=== PATIENT | female | born 1935 | race Caucasian/White ===

== ENCOUNTER 2024-07-20 13:09 | Inpatient (IN) | payer MEDICARE, BC ==
[~2024-07-20] VITALS: Ht 175.3 cm; Wt 63.5 kg
[2024-07-20 13:32] VITALS: BP 155/81; TEMP 98.1
[2024-07-20 14:07] VITALS: BP 155/81; TEMP 98.1
[2024-07-20] MEDS ORDERED: HYDR12.55 PO (14:10)
[2024-07-20] MEDS ORDERED: LOSA50TA39 PO (14:10)
[2024-07-20] MEDS ORDERED: CALC-494 PO (14:10)
[2024-07-20] MEDS ORDERED: MAGN400O6 PO (14:10)
[2024-07-20] MEDS ORDERED: ZOLP5TAB8 PO (14:10)
[2024-07-20] MEDS ORDERED: TRAM50TA2 PO (14:10)
[2024-07-20] MEDS ORDERED: MULT-1045 PO (14:10)
[2024-07-20] MEDS ORDERED: PETR113P TP (14:10)
[2024-07-20] MEDS ORDERED: ACET325T53 PO (14:10)
[2024-07-20] MEDS ORDERED: PANT40TA49 PO (14:10)
[2024-07-20] MEDS ORDERED: ATOR40TA PO (14:10)
[2024-07-20] MEDS ORDERED: POLY17PO4 PO (17:07)
[2024-07-20] MEDS ORDERED: MAGN400C PO (17:07)
[2024-07-20] MEDS ORDERED: APIX5TAB PO (17:07)
[2024-07-20] MEDS ORDERED: SIME80TA15 PO (17:07)
[2024-07-20] MEDS ORDERED: ACET-1951 PO (17:21)
[2024-07-20] MEDS ORDERED: VIT1CAPS44 PO (17:21)
[2024-07-20] MEDS ORDERED: MELA3TAB41 PO (17:21)
[2024-07-20 18:04] VITALS: BP 118/69; TEMP 98.3; O2SAT 95
[2024-07-20] MEDS ORDERED: ACETAMINOPHEN 325 MG TABLET-SA PATIENTS-PAIN ONLY PO PRN (19:15)
[2024-07-20] MEDS ORDERED: TRAMADOL HCL 50 MG TABLET PO PRN (19:15)
[2024-07-20] MEDS ORDERED: MAGNESIUM HYDROXIDE 30 ML LIQUID UDC PO PRN (19:15)
[2024-07-20 20:55] VITALS: BP 139/70; TEMP 98.3; O2SAT 95
[2024-07-20] MEDS: MELATONIN 3 MG TABLET PO SCH (21:35)
[2024-07-20] MEDS: APIXABAN 5 MG TABLET PO SCH (21:36)
[2024-07-20] MEDS: ATORVASTATIN 40 MG TABLET PO SCH (21:36)
[2024-07-21] MEDS ORDERED: CALCIUM CARBONATE 500 MG TAB.CHEW PO SCH (02:00)
[2024-07-21 05:33] VITALS: BP 127/70; TEMP 98.5; O2SAT 95
[2024-07-21] MEDS: SIMETHICONE 80 MG TAB.CHEW PO SCH (06:31)
[2024-07-21] MEDS: PANTOPRAZOLE SODIUM 40 MG TABLET.DR PO SCH (06:31)
[2024-07-21 08:00] VITALS: BP 125/61; TEMP 98.6; O2SAT 95
[2024-07-21] MEDS ORDERED: [UNRECOGNIZED DRUG - OTHER] PO SCH (08:00)
[2024-07-21] MEDS: CALCIUM CARBONATE 500 MG TAB.CHEW PO SCH (08:45)
[2024-07-21] MEDS: MIRALAX 17 GM POWD.PACK PO SCH (08:46)
[2024-07-21] MEDS: LOSARTAN POTASSIUM 50 MG TABLET PO SCH (08:46)
[2024-07-21] MEDS: HYDROCHLOROTHIAZIDE 12.5 MG CAPSULE PO SCH (08:47)
[2024-07-21] MEDS: MULTIVITAMINS,THERAPEUTIC TABLET PO SCH (08:50)
[2024-07-21 08:59] LABS: BASOPHILS # (AUTO) 0.1 K/UL (0.0-0.2); BASOPHILS % (AUTO) 0.6 % (0.0-2.0); EOSINOPHILS # (AUTO) 0.1 K/uL (0.0-0.7); HEMATOCRIT 34.3 % (31.2-41.9); HEMOGLOBIN 11.5 g/dL (10.9-14.3); LYMPHOCYTES # (AUTO) 1.5 K/uL (0.8-4.8); LYMPHOCYTES % (AUTO) 14.6 % (20.5-51.5); MEAN CORPUSCULAR HEMOGLOBIN 31.2 uug (24.7-32.8); MEAN CORPUSCULAR HGB CONC 34 g/dL (32.3-35.6); MEAN CORPUSCULAR VOLUME 92.9 fL (75.5-95.3); MONOCYTES # (AUTO) 1.3 K/uL (0.1-1.30); MONOCYTES % (AUTO) 13.1 % (0.0-11.0); NEUTROPHILS # (AUTO) 7.2 K/uL (1.8-8.9); NEUTROPHILS % (AUTO) 70.7 % (38.5-71.5); PLATELET COUNT (AUTO) 245 K/uL (179-408); RED BLOOD CELL COUNT(AUTO) 3.69 MIL/uL (3.63-4.92); RED CELL DISTRIBUTION WIDTH 15.7 % (12.3-17.7); WHITE BLOOD COUNT (AUTO) 10.2 K/uL (3.8-11.8)
[2024-07-21 09:14] LABS: DIFFERENTIAL COMMENT 1
[2024-07-21] MEDS: PRESERVISION AREDS PO SCH (09:15)
[2024-07-21 09:23] LABS: CALCIUM 9.3 mg/dL (8.5-10.1); CARBON DIOXIDE 31 mmol/L (21-32); CHLORIDE 99 mmol/L (98-107); GLUCOSE 151 mg/dL (74-106); POTASSIUM 3.9 mmol/L (3.5-5.1); SODIUM SERUM 138 mmol/L (136-145); UREA NITROGEN, BLOOD 21 mg/dL (7-18)
[2024-07-21] MEDS: ACETAMINOPHEN 325 MG TABLET PO PRN (15:53)
[2024-07-21 16:00] VITALS: BP 122/57; TEMP 97.7; O2SAT 96
[2024-07-22 07:45] VITALS: BP 132/68; TEMP 98; O2SAT 96
[2024-07-22 16:03] VITALS: BP 107/57; TEMP 98.8; O2SAT 97
[2024-07-22] MEDS: TRAMADOL HCL 50 MG TABLET PO PRN (19:55)
[2024-07-22 20:12] VITALS: BP 111/54; TEMP 98.8; O2SAT 97
[2024-07-23 19:24] VITALS: BP 112/59; TEMP 98; O2SAT 97
[2024-07-23 20:30] VITALS: BP 124/55; TEMP 98.1; O2SAT 97
[2024-07-24] MEDS ORDERED: REMEDY ESSENTIAL ZINC PASTE 113 GM TOP PRN (01:45)
[2024-07-24 06:20] VITALS: BP 128/62; TEMP 98.2; O2SAT 96
[2024-07-24 08:03] LABS: BASOPHILS # (AUTO) 0.1 K/UL (0.0-0.2); BASOPHILS % (AUTO) 0.6 % (0.0-2.0); EOSINOPHILS # (AUTO) 0.2 K/uL (0.0-0.7); HEMATOCRIT 31.8 % (31.2-41.9); HEMOGLOBIN 10.8 g/dL (10.9-14.3); LYMPHOCYTES # (AUTO) 1.4 K/uL (0.8-4.8); LYMPHOCYTES % (AUTO) 17.2 % (20.5-51.5); MEAN CORPUSCULAR HEMOGLOBIN 31.2 uug (24.7-32.8); MEAN CORPUSCULAR HGB CONC 34 g/dL (32.3-35.6); MONOCYTES # (AUTO) 1.3 K/uL (0.1-1.30); MONOCYTES % (AUTO) 15.9 % (0.0-11.0); NEUTROPHILS # (AUTO) 5.3 K/uL (1.8-8.9); NEUTROPHILS % (AUTO) 64.3 % (38.5-71.5); PLATELET COUNT (AUTO) 354 K/uL (179-408); RED BLOOD CELL COUNT(AUTO) 3.46 MIL/uL (3.63-4.92); RED CELL DISTRIBUTION WIDTH 15.7 % (12.3-17.7); WHITE BLOOD COUNT (AUTO) 8.3 K/uL (3.8-11.8)
[2024-07-24 08:27] LABS: DIFFERENTIAL COMMENT 1
[2024-07-24 08:37] LABS: THYROID STIMULATING HORMONE 2.721 mIU/mL (0.358-3.740)
[2024-07-24 08:42] LABS: ALANINE AMINOTRANSFERASE 140 U/L (14-59); ALBUMIN 2.2 g/dL (3.4-5.0); ALKALINE PHOSPHATASE 126 U/L (50-136); ASPARTATE AMINOTRANSFERASE 86 U/L (15-37); BILIRUBIN,TOTAL 0.6 mg/dL (0.2-1.0); CALCIUM 9.3 mg/dL (8.5-10.1); CARBON DIOXIDE 28 mmol/L (21-32); CHLORIDE 97 mmol/L (98-107); CHOLESTEROL 106 mg/dL (<200); GLUCOSE 128 mg/dL (74-106); HDL CHOLESTEROL 21 mg/dL (40-60); MAGNESIUM 1.8 mg/dL (1.8-2.4); POTASSIUM 3.7 mmol/L (3.5-5.1); SODIUM SERUM 135 mmol/L (136-145); TOTAL PROTEIN, SERUM 6.7 g/dL (6.4-8.2); TRIGLYCERIDES 186 MG/DL (30-150); UREA NITROGEN, BLOOD 32 mg/dL (7-18); URIC ACID 4.7 mg/dL (2.6-6.0)
[2024-07-24 14:24] LABS: BAND % (MANUAL) 8 % (0-10); EOSINOPHILS % (MANUAL) 2 % (0-8); LYMPHOCYTES % (MANUAL) 19 % (20-40); MONOCYTES % (MANUAL) 17 % (2-10); NEUTROPHILS % (MANUAL) 54 % (42-75)
[2024-07-24 14:25] LABS: ANISOCYTOSIS 1+; PLATELET ESTIMATE ADEQUATE
[2024-07-24 18:46] VITALS: BP 116/68; TEMP 98.3; O2SAT 94
[2024-07-24 20:42] VITALS: BP 107/55; TEMP 98.1; O2SAT 93
[2024-07-24] MEDS: REMEDY ESSENTIAL ZINC PASTE 113 GM TOP PRN (21:15)
[2024-07-25 06:52] VITALS: BP 118/70; TEMP 97.9; O2SAT 96
[2024-07-25 18:54] VITALS: BP 109/57; TEMP 98.6; O2SAT 99
[2024-07-25 20:25] VITALS: BP 111/54; TEMP 98.2; O2SAT 99
[2024-07-26] MEDS: CLINDAMYCIN HCL 300 MG CAPSULE PO SCH (14:33)
[2024-07-26] MEDS ORDERED: CLINDAMYCIN HCL 300 MG CAPSULE ONE (22:34)
[2024-07-26] MEDS: PANTOPRAZOLE SODIUM 40 MG TABLET.DR PO SCH (23:42)
[2024-07-27 05:00] VITALS: BP_SYST 104; BP_SYST 119; BP_SYST 120; BP_DIAS 56; BP_DIAS 66; BP_DIAS 68; TEMP 97.7; TEMP 98.1; TEMP 98.3; O2SAT 95; O2SAT 96
[2024-07-27] MEDS ORDERED: CLINDAMYCIN HCL 300 MG CAPSULE ONE (05:59)
[2024-07-27 08:00] VITALS: BP 133/64; TEMP 97.6; O2SAT 95
[2024-07-27 20:08] VITALS: BP 110/55; TEMP 97.7; O2SAT 99
[2024-07-28 06:32] VITALS: BP 112/65; TEMP 97.8; O2SAT 95
[2024-07-28 07:52] VITALS: BP 127/71; TEMP 97.2; O2SAT 95
[2024-07-28 15:48] VITALS: BP 105/68; TEMP 97.6; O2SAT 93
[2024-07-28 20:24] VITALS: BP 102/58; TEMP 97.8; O2SAT 95
[2024-07-29 06:49] VITALS: BP 110/66; TEMP 97.4; O2SAT 95
[2024-07-29 08:00] VITALS: BP 131/62; TEMP 97.8; O2SAT 96
[2024-07-29] MEDS ORDERED: ENOXAPARIN SODIUM 40 MG/0.4 ML DISP.SYRIN SQ SCH ×2 (13:30→21:00)
[2024-07-29 16:00] VITALS: BP 107/59; TEMP 97.4; O2SAT 96
[2024-07-29] MEDS: CLOTRIMAZOLE 1% CREAM 30 GM TUBE TOP SCH (17:31)
[2024-07-29 20:00] VITALS: BP 97/49; TEMP 97; O2SAT 92
[2024-07-29] MEDS: TRAMADOL HCL 50 MG TABLET PO SCH (21:42)
[2024-07-30 07:00] VITALS: BP 130/68; TEMP 97.4; O2SAT 94
[2024-07-30 08:01] VITALS: BP 120/67; TEMP 98; O2SAT 97
[2024-07-30] MEDS: ENOXAPARIN SODIUM 40 MG/0.4 ML DISP.SYRIN SQ SCH (08:43)
[2024-07-30 16:00] VITALS: BP 90/57; TEMP 97.2; O2SAT 97
[2024-07-30 21:24] VITALS: BP 122/68; TEMP 97.8; O2SAT 96
[2024-07-31 06:36] VITALS: BP 120/62; TEMP 97.8; O2SAT 96
[2024-07-31 06:56] VITALS: BP 120/67; TEMP 98; O2SAT 96
[2024-07-31 08:11] VITALS: BP 129/73; TEMP 97.8; O2SAT 97
[2024-07-31 15:55] VITALS: BP 100/50; TEMP 97.6; O2SAT 97
[2024-07-31 20:05] VITALS: BP 93/49; TEMP 97.9; O2SAT 96
[2024-07-31 21:49] VITALS: BP 131/70
[2024-08-01 05:19] VITALS: BP 121/61; TEMP 98; O2SAT 96
[2024-08-01 08:26] VITALS: BP 113/62; TEMP 97.9; O2SAT 99
[2024-08-01 16:52] VITALS: BP 113/62; TEMP 97.8; O2SAT 99
[2024-08-01 21:39] VITALS: BP 112/64; TEMP 97.9; O2SAT 94
[2024-08-02 06:04] VITALS: BP 131/65; TEMP 97.4; O2SAT 98
[2024-08-02 08:04] VITALS: BP 118/66; TEMP 97.4; O2SAT 98
[2024-08-02 16:33] VITALS: BP 110/61; TEMP 97.8; O2SAT 97
[2024-08-02 20:00] VITALS: BP 109/54; TEMP 97.7; O2SAT 92
[2024-08-02] MEDS ORDERED: BISACODYL 5 MG TABLET.DR PO PRN (20:45)
[2024-08-02] MEDS ORDERED: DOCUSATE SODIUM 100 MG CAPSULE PO SCH (21:00)
[2024-08-03 05:30] VITALS: BP 123/62; TEMP 97.6; O2SAT 94
[2024-08-03 07:35] VITALS: BP 130/85; TEMP 97.7; O2SAT 98
[2024-08-03 15:50] VITALS: BP 78/50; TEMP 97.4; O2SAT 94
[2024-08-03 16:00] VITALS: BP 101/53; TEMP 97.4; O2SAT 94
[2024-08-03 20:00] VITALS: BP 115/61; TEMP 97.9; O2SAT 93
[2024-08-04 05:00] VITALS: BP 116/74; TEMP 97.7; O2SAT 95
[2024-08-04 08:00] VITALS: BP 133/76; TEMP 97.8; O2SAT 97
[2024-08-04 08:31] VITALS: BP 116/74
== END 2024-08-04 14:35 | DRG 560 ==
LOC: UNDOADMIN 13:09
PROVIDERS: ADMIT Physical Medicine & Rehabilitation Pain Medicine; ATTEND Physical Medicine & Rehabilitation Pain Medicine
DX: S82.145D Nondisplaced bicondylar fracture of left tibia, subsequent encounter for closed fracture with routine healing (principal); L03.115 Cellulitis of right lower limb; W19.XXXD Unspecified fall, subsequent encounter; E78.5 Hyperlipidemia, unspecified; I10 Essential (primary) hypertension; Z85.42 Personal history of malignant neoplasm of other parts of uterus; Z88.0 Allergy status to penicillin; R26.89 Other abnormalities of gait and mobility; M25.462 Effusion, left knee; M19.90 Unspecified osteoarthritis, unspecified site; I70.201 Unspecified atherosclerosis of native arteries of extremities, right leg; M79.89 Other specified soft tissue disorders
CPT/HCPCS: 36415; 73630; 83735; 84443; 84550; 85025; 97535-GO-CO; A4663; A6209; J1650